=== PATIENT | female | born 1990 | race Asian ===

== ENCOUNTER 2017-03-07 23:52 | Inpatient (IN) | payer BC ==
[2017-03-08] MEDS ORDERED: Nalbuphine 10 MG/1 ML Vial IVPUSH ONE (01:48)
[2017-03-08] MEDS ORDERED: Sodium Chloride 0.9% 10 ML Syringe FLUSH PRN ×2 (01:48→17:27)
[2017-03-08] MEDS ORDERED: Acetaminophen 325 MG Tab PO PRN ×2 (01:48→17:27)
[2017-03-08] MEDS ORDERED: Ondansetron 4 MG/2 ML SDV IV PRN (01:48)
[2017-03-08] MEDS ORDERED: Butorphanol 2 MG/ML SDV IM ONE (01:48)
[2017-03-08] MEDS ORDERED: Promethazine 25 MG/ML SDV IM PRN (01:48)
[2017-03-08] MEDS ORDERED: Oxytocin/Normal Saline 30 UNIT/500 ML BAG IV SCH ×2 (02:00→17:45)
[2017-03-08] MEDS: Lactated Ringers 1,000 ML IV SCH ×5 (02:26→13:05)
--- NOTE | 2017-03-08 04:45 | HP ---
CHIEF COMPLAINT: "My water broke." HISTORY OF PRESENT ILLNESS: Ms. Lane is a 26-year-old, 1, para 0, Filipino female, who reports to Labor and Delivery at [facility] in [place] [facility] Department with complaints of spontaneous rupture of membranes just before midnight on 03/07/2017. Last menstrual period 05/26/2016, EDC 03/02/2017, EGA 40-6/7 weeks' gestation, which is consistent with last menstrual period and second trimester ultrasound. She denies any nausea, vomiting, or diarrhea. No fever or chills. No hematochezia, hematemesis, or hematuria. No dysuria, frequency, or urgency with urination. No leg pain, leg edema, back pain, or regular contractions. She does have leakage of clear fluid, but denies any vaginal bleeding. Her has gone well except for first trimester hyperemesis and some early bleeding, which stopped by the time she got under second trimester. No other issues throughout the . PAST MEDICAL HISTORY: No history of asthma, anemia, cancer, diabetes, seizure disorder, hypertension, heart disease, thyroid disease, thromboembolic disease, breast lesions, or kidney disease. FAMILY HISTORY: Positive for diabetes in her [id number], but no hypertension, heart disease, cancer, diabetes, seizure disorder, lung problems, or kidney problems in her family. SOCIAL HISTORY: She denies any tobacco use, alcohol use, or illicit drug use. She lives in [place] with her significant other, Freeman. She is . 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 PAST SURGICAL HISTORY: None. MEDICATIONS: vitamins. ALLERGIES: No known drug allergies. REVIEW OF SYSTEMS: All pertinent positive and negative review of systems per HPI. All other systems reviewed are negative. A 10-point review of systems is discussed with the patient. She has no issues. OBJECTIVE: General: Well-developed, well-nourished female, in no acute distress. Vital Signs: Stable. Afebrile. Blood pressure 130/88, respirations 18, and pulse 80. HEENT: Unremarkable. PERRLA. Neck: Supple without adenopathy. No thyromegaly. Lungs: Clear to auscultation. No wheezing, rhonchi, or rales noted. Cardiovascular: Regular rate and rhythm without murmurs. Abdomen: Gravid. Nontender. heart tones in the 130s to 140s, category 1 strip, reactive strip with good accelerations. Contractions are irregular. Cervix is 1 cm, dilated. Clear fluid. Positive Nitrazine. Extremities: No edema, erythema, or tenderness noted. DTRs 2+/4 in all areas. No clonus. LABORATORY DATA: WBC 8.3, hemoglobin 13.1, hematocrit 39.8, and platelet count 94,000. Blood type is A positive, antibody screen negative. RPR nonreactive. Hepatitis B surface antigen negative. HIV negative. Rubella immune. Group B strep negative. ASSESSMENT: 1. A 40-6/7 weeks' intrauterine . 2. Spontaneous rupture of membranes/premature rupture of membranes. 3. Thrombocytopenia of . PLAN: 1. Expect vaginal delivery. 2. Pitocin augmentation. 3. Discussed pain control with the patient and her , and at this point, she would like to go natural, but she does know her options of IV medications including Nubain and Stadol along with intrathecal if needed and wanted. 4. All questions answered. [facility] /[id number] MTDD
[2017-03-08] MEDS ORDERED: Nalbuphine 10 MG/1 ML Vial ONE (05:30)
[2017-03-08] MEDS ORDERED: fentaNYL 100 MCG/2 ML SDV ONE ×2 (07:53→12:47)
--- NOTE | 2017-03-08 08:51 | PCM.PRNOTE ---
- Free Text/Narrative Note: Requested to provide analgesia to full term patient in severe pain. Upon entering the room, pt is lying on left side complaining of severe abdominal pain and discomfort. Procedure was discussed with pt including adverse outcomes and expectations. Pt consented to analgesia, SAB/IT. Pt placed into a sitting position. Landmarks for SAB/IT were identified and marked. Back was prepped with betadine x3. A sterile, transparent, fenestrated drape was applied. Excess betadine was removed. Using 1 mL of a 2% lidocaine solution, a skin wheel was placed at the L3/L4 interspace. A 24 ga (4 inch) pencan spinal needle was inserted until positive for CSF. Negative for heme or paresthesias. Injected fentanly 20 mcg, sufenta 10 mcg, and 9 mg of a 0.75% bupivicaine solution with an epi wash. Pt was placed left lateral position for approximately 10 minutes. There were zero complications or adverse outcomes. Will continue to monitor.
--- NOTE | 2017-03-08 10:55 | PCM.PNLD ---
Labor Progress Note - VS & Meds Vital Signs: Last Vital Signs Temp 98.4 F 03/08/17 10:00 Pulse 80 03/08/17 09:15 Resp 18 03/08/17 09:15 BP 81/45 L 03/08/17 09:15 Pulse Ox 100 03/08/17 09:00 Active Medications: Current Medications Acetaminophen (Tylenol) 650 mg PO Q6H PRN PRN Reason: mild pain and fever Lactated Ringer's (Ringers, Lactated) 1,000 mls @ 125 mls/hr IV ASDIRECTED TATIANNA Last Admin: 03/08/17 08:54 Dose: 125 mls/hr Oxytocin/Sodium Chloride (Pitocin In Ns 30 Unit/500 Ml) 30 unit in 500 mls @ 2 mls/hr IV TITRATE TATIANNA; 2 MUNITS/MIN PRN Reason: Protocol Last Titration: 03/08/17 09:52 Dose: 4 munits/min, 4 mls/hr Ondansetron HCl (Zofran) 4 mg IV Q4H PRN PRN Reason: Nausea/Vomiting Last Admin: 03/08/17 08:53 Dose: 4 mg Promethazine HCl (Phenergan) 25 mg IM Q4H PRN PRN Reason: Nausea/Vomiting Sodium Chloride (Saline Flush) 10 ml FLUSH ASDIRECTED PRN PRN Reason: Keep Vein Open Discontinued Medications Butorphanol Tartrate (Stadol) 2 mg IM ONETIME ONE Stop: 03/08/17 01:49 Fentanyl (Sublimaze) Confirm Administered Dose 100 mcg .ROUTE .STK-MED ONE Stop: 03/08/17 07:54 Nalbuphine HCl (Nubain) 10 mg IVPUSH ONETIME ONE Stop: 03/08/17 01:49 Last Admin: 03/08/17 05:33 Dose: 10 mg Nalbuphine HCl (Nubain) Confirm Administered Dose 10 mg .ROUTE .STK-MED ONE Stop: 03/08/17 05:31 Last Admin: 03/08/17 06:37 Dose: Not Given Sufentanil Citrate (Sufenta) Confirm Administered Dose 50 mcg .ROUTE .STK-MED ONE Stop: 03/08/17 07:55 - Uterine Contractions Uterine Monitoring Mode: IUPC Contraction Frequency (min): 2-3 Contraction Duration (sec): 60-100 Contraction Intensity: Strong Uterine Resting Tone: Soft - Monitoring Monitor Mode: Spiral Electrode Heart Rate (FHR) Baseline: 140 Heart Rate (FHR) Variability: Moderate (6-25 bmp) Accelerations: Present, 15x15 Decelerations: None Strip Review: Category I - Vaginal Exam Dilation (cm): 6 Effacement (Percent): 100 Station: -2 Cervical Position: Midposition Sterile Vaginal Exam Performed By: Nghia oBlton - Labor Progress (Free Text) Labor Progress: Patient is very comfortable after Intrathecal. No nausea, vomiting or diarrhea. No fever or chills. Contractions every 2-3 minutes apart. Cervix 6 cm/100%/-2 IUPC and FSE placed.
--- NOTE | 2017-03-08 13:19 | PCM.PRNOTE ---
- Free Text/Narrative Note: Requested to provide analgesia to full term patient in severe pain for a second intrathecal narcotic/SAB - saddle block. Upon entering the room, pt is lying on left side complaining of moderate abdominal pain and discomfort. Procedure was discussed with pt including adverse outcomes and expectations again. Pt consented to analgesia, SAB/IT. Pt placed into a sitting position. Landmarks for SAB/IT were identified and marked. Back was prepped with betadine x3. A sterile, transparent, fenestrated drape was applied. Excess betadine was removed. Using 1 mL of a 2% lidocaine solution, a skin wheel was placed at the L3/L4 interspace. A 24 ga (4 inch) pencan spinal needle was inserted until positive for CSF on a single attempt. Positive for minimal heme but denied paresthesias. Injected fentanly 20 mcg, sufenta 10 mcg, and 10 mg of a 0.75% bupivicaine solution with an epi wash. Pt was placed left lateral position for approximately 10 minutes. There were zero complications or adverse outcomes. Will continue to monitor.
--- NOTE | 2017-03-08 15:49 | PCM.PNLD ---
Labor Progress Note - VS & Meds Vital Signs: Last Vital Signs Temp 98.6 F 03/08/17 13:00 Pulse 79 03/08/17 15:00 Resp 18 03/08/17 15:00 BP 102/60 03/08/17 15:00 Pulse Ox 100 03/08/17 15:00 Active Medications: Current Medications Acetaminophen (Tylenol) 650 mg PO Q6H PRN PRN Reason: mild pain and fever Lactated Ringer's (Ringers, Lactated) 1,000 mls @ 125 mls/hr IV ASDIRECTED TATIANNA Last Admin: 03/08/17 13:05 Dose: 125 mls/hr Oxytocin/Sodium Chloride (Pitocin In Ns 30 Unit/500 Ml) 30 unit in 500 mls @ 2 mls/hr IV TITRATE TATIANNA; 2 MUNITS/MIN PRN Reason: Protocol Last Titration: 03/08/17 12:05 Dose: 12 munits/min, 12 mls/hr Ondansetron HCl (Zofran) 4 mg IV Q4H PRN PRN Reason: Nausea/Vomiting Last Admin: 03/08/17 08:53 Dose: 4 mg Promethazine HCl (Phenergan) 25 mg IM Q4H PRN PRN Reason: Nausea/Vomiting Sodium Chloride (Saline Flush) 10 ml FLUSH ASDIRECTED PRN PRN Reason: Keep Vein Open Discontinued Medications Butorphanol Tartrate (Stadol) 2 mg IM ONETIME ONE Stop: 03/08/17 01:49 Fentanyl (Sublimaze) Confirm Administered Dose 100 mcg .ROUTE .STK-MED ONE Stop: 03/08/17 07:54 Last Admin: 03/08/17 11:54 Dose: Not Given Fentanyl (Sublimaze) Confirm Administered Dose 100 mcg .ROUTE .STK-MED ONE Stop: 03/08/17 12:48 Last Admin: 03/08/17 13:16 Dose: Not Given Nalbuphine HCl (Nubain) 10 mg IVPUSH ONETIME ONE Stop: 03/08/17 01:49 Last Admin: 03/08/17 05:33 Dose: 10 mg Nalbuphine HCl (Nubain) Confirm Administered Dose 10 mg .ROUTE .STK-MED ONE Stop: 03/08/17 05:31 Last Admin: 03/08/17 06:37 Dose: Not Given Sufentanil Citrate (Sufenta) Confirm Administered Dose 50 mcg .ROUTE .STK-MED ONE Stop: 03/08/17 07:55 Last Admin: 03/08/17 11:54 Dose: Not Given Sufentanil Citrate (Sufenta) Confirm Administered Dose 50 mcg .ROUTE .STK-MED ONE Stop: 03/08/17 12:48 Last Admin: 03/08/17 13:16 Dose: Not Given - Uterine Contractions Uterine Monitoring Mode: IUPC Contraction Frequency (min): 2-3 Contraction Duration (sec): 60-100 Contraction Intensity: Strong Uterine Resting Tone: Soft - Monitoring Monitor Mode: Spiral Electrode Heart Rate (FHR) Baseline: 145 Heart Rate (FHR) Variability: Moderate (6-25 bmp) Accelerations: Present, 15x15 Decelerations: Variable, Intermittent (<50% x 20 min) Strip Review: Category I - Vaginal Exam Dilation (cm): Rim Effacement (Percent): 100 Station: 0 Cervical Position: Midposition Sterile Vaginal Exam Performed By: Nghia Bolton Vaginal Exam Comment: Just a small amount on the left side. + bloody show.
[2017-03-08] MEDS ORDERED: Carboprost Tromethamine 250 MCG/1 ML Amp IM PRN (17:27)
[2017-03-08] MEDS ORDERED: Simethicone 80 MG Tab.Chew PO PRN (17:27)
[2017-03-08] MEDS ORDERED: Misoprostol 400 MCG (4 X 100 MCG TAB) RECTAL PRN (17:27)
[2017-03-08] MEDS ORDERED: Zolpidem 5 MG Tab PO PRN (17:27)
--- NOTE | 2017-03-08 17:41 | PCM.DEL ---
L & D Note - General Info Date of Service: 03/08/17 ( at 1638 hours) Mother's Due Date: 03/02/17 (40 6/7 weeks gestation) - Delivery Note Labor: Augmented by Oxytocin Delivery Outcome: Livebirth Delivery Method: Spontaneous Vaginal Delivery-Single Infant Delivery Mode: Vacuum Extraction Presentation: Left Occiput Anterior (JAILYN) Nuchal Cord: None Prep: Povidone-Iodine (Betadine Anesthesia Type: Intrathecal Amniotic Fluid Description: Clear Episiotomy Type: None Laceration: 2nd Degree, Labial Suture type: Vicryl Suture size: 3-0 Placenta: Intact, Spontaneous Cord: 3 Vessels Estimated Blood Loss: 450 Resuscitation Needed: Yes [place]: Suctioned, Bulb Syringe, Stimulated, Warmed, Vevay Used, Warmer Used Provider: Nghia Bolton Score 1 min: 3 Score 5 min: 8 Second Stage Interventions: Reports: Second Nurse Assessed Progress of Descent, Second Nurse Reviewed Contraction Pattern, Second Nurse Reviewed Heart Tones, Encouragement Given, Pushing Ineffectively, Pushing, McRobert's Position , Pushing, Stirrups/Leg Supports Delivery Comments (Free Text/Narrative):: 26 y.o 1 Para 0 female who reported to labor and delivery with spontaneous rupture of membranes. Pitocin augmentation started. She did get a Intrathecal X 2 for pain control. Once she got to complete she pushed until she got to a + 2 station then did not bring the head down anymore so a Kiwi vacuum was placed with 4 pushes and 3 contractions and after 9 minutes the head was delivered JAILYN then the rest of the was delivered over a 2nd degree midline perineal laceration. At 1639 a Viable male infant 7 lbs 5 oz; 20 1/4 inches long; with 's 3 at 1 minute and 8 at 5 minutes. The second degree laceration and labial lacerations were repaired with 3-0 and 2-0 chromic suture without difficulty. No complications. Mother and infant in good condition. Vacuum Extractor Progress Note - Alternative Labor Strategies Considered Strategies Considered:: Reports: Contraction Intensity Adequate, Position Changes Used to Facilitate Rotation & Descent, Empty Bladder, Rest Indications Considered:: Reports: Yes Indications:: Reports: Suspicion of Immediate or Potential Compromise Time Out:: Reports: Yes - Patient Prepared Patient Prepared:: Reports: Yes Informed Consent:: Reports: Yes Risks: Reports: Yes Risks Include:: Reports: Laceration, Shoulder Dystocia, Maternal Injury Anesthesia/Analgesia Adequate:: Reports: Yes - Probability of Success High Probability of Success:: Reports: Yes Weight Estimated:: Reports: AGA Patient Diabetic:: Reports: No Pelvis Adequate:: Reports: Yes Asynclitic:: Reports: Yes - Application Time Maximum Application Time & Number of Pop-Offs Predetermined:: Reports: Yes Maximum Pressure Maintained in [place] (cm Hg):: 25 Total Application Time (min): *max=20min: 9 Number of Times Cup Disengaged:: 0 Type of Vacuum Used:: Reports: Cup: Rigid Vacuum Extraction: Successful - Exit Strategy Exit strategy available:: Reports: Yes and resuscitation teams readily available:: Reports: Yes - Patient Data Vitals - Most Recent: Last Vital Signs Temp 98.6 F 03/08/17 13:00 Pulse 79 03/08/17 15:00 Resp 18 03/08/17 15:00 BP 102/60 03/08/17 15:00 Pulse Ox 100 03/08/17 15:00 Weight - Most Recent: 136 lb I&O - Last 24 Hours: Intake & Output 03/08/17 03/08/17 03/08/17 06:59 14:59 22:59 Intake Total 1000 Output Total 500 Balance 1000 -500 Lab Results Last 24 Hours: Laboratory Results - last 24 hr 03/08/17 Range/Units 00:35 WBC 8.3 (5.0-10.0) 10^3/uL RBC 3.81 L (4.2-5.4) 10^6/uL Hgb 13.1 (12.0-16.0) g/dL Hct 39.8 (37.0-47.0) % MCV 104.5 H (80-100) fL MCH 34.4 H (27.0-34.0) pg MCHC 32.9 L (33.0-35.0) g/dL Plt Count 94 L (150-450) 10^3/uL Med Orders - Current: Current Medications Acetaminophen (Tylenol) 650 mg PO Q6H PRN PRN Reason: mild pain and fever Acetaminophen (Tylenol) 650 mg PO Q6H PRN PRN Reason: mild pain or fever Benzocaine/Menthol (Dermoplast Pain Relief [place]) 0 gm TOP Q4H PRN PRN Reason: Perineal comfort measures Carboprost Tromethamine (Hemabate Ds) 250 mcg IM ASDIRECTED PRN PRN Reason: Excessive vaginal bleeding Docusate Sodium (Colace) 100 mg PO BID PRN PRN Reason: Constipation Lactated Ringer's (Ringers, Lactated) 1,000 mls @ 125 mls/hr IV ASDIRECTED TATIANNA Last Admin: 03/08/17 13:05 Dose: 125 mls/hr Oxytocin/Sodium Chloride (Pitocin In Ns 30 Unit/500 Ml) 30 unit in 500 mls @ 2 mls/hr IV TITRATE TATIANNA; 2 MUNITS/MIN PRN Reason: Protocol Last Titration: 03/08/17 12:05 Dose: 12 munits/min, 12 mls/hr Oxytocin/Sodium Chloride (Pitocin In Ns 30 Unit/500 Ml) 500 mls @ 999 mls/hr IV TITRATE TATIANNA; 999 MUNITS/MIN PRN Reason: Protocol Ibuprofen (Motrin) 800 mg PO Q8H PRN PRN Reason: Mild Pain or Fever Misoprostol (Cytotec) 800 mcg RECTAL ONETIME PRN PRN Reason: Hemorrhage Ondansetron HCl (Zofran) 4 mg IV Q4H PRN PRN Reason: Nausea/Vomiting Last Admin: 03/08/17 08:53 Dose: 4 mg Prenat Multivit/[place]/Iron/Folic Ac ( Plus Iron) 1 each PO DAILY TATIANNA Promethazine HCl (Phenergan) 25 mg IM Q4H PRN PRN Reason: Nausea/Vomiting Simethicone (Simethicone) 80 mg PO Q4H PRN PRN Reason: Gas Sodium Chloride (Saline Flush) 10 ml FLUSH ASDIRECTED PRN PRN Reason: Keep Vein Open Sodium Chloride (Saline Flush) 10 ml FLUSH ASDIRECTED PRN PRN Reason: Keep Vein Open Zolpidem Tartrate (Ambien) 5 mg PO BEDTIME PRN PRN Reason: Insomnia Discontinued Medications Butorphanol Tartrate (Stadol) 2 mg IM ONETIME ONE Stop: 03/08/17 01:49 Fentanyl (Sublimaze) Confirm Administered Dose 100 mcg .ROUTE .STK-MED ONE Stop: 03/08/17 07:54 Last Admin: 03/08/17 11:54 Dose: Not Given Fentanyl (Sublimaze) Confirm Administered Dose 100 mcg .ROUTE .STK-MED ONE Stop: 03/08/17 12:48 Last Admin: 03/08/17 13:16 Dose: Not Given Nalbuphine HCl (Nubain) 10 mg IVPUSH ONETIME ONE Stop: 03/08/17 01:49 Last Admin: 03/08/17 05:33 Dose: 10 mg Nalbuphine HCl (Nubain) Confirm Administered Dose 10 mg .ROUTE .STK-MED ONE Stop: 03/08/17 05:31 Last Admin: 03/08/17 06:37 Dose: Not Given Sufentanil Citrate (Sufenta) Confirm Administered Dose 50 mcg .ROUTE .STK-MED ONE Stop: 03/08/17 07:55 Last Admin: 03/08/17 11:54 Dose: Not Given Sufentanil Citrate (Sufenta) Confirm Administered Dose 50 mcg .ROUTE .STK-MED ONE Stop: 03/08/17 12:48 Last Admin: 03/08/17 13:16 Dose: Not Given - Problem List Review Problem List Initiated/Reviewed/Updated: Yes - My Orders Last 24 Hours: My Active Orders 03/08/17 01:48 Patient Status [ADT] Routine Notify Provider Vital Signs OB [RC] ASDIRECTED Notify Provider [RC] PRN Up ad Yari [RC] ASDIRECTED Vital Signs [RC] PER UNIT ROUTINE Acetaminophen [Tylenol] 650 mg PO Q6H PRN Ondansetron [Zofran] 4 mg IV Q4H PRN Promethazine [Phenergan] 25 mg IM Q4H PRN Sodium Chloride 0.9% [Saline Flush] 10 ml FLUSH ASDIRECTED PRN Peripheral IV Insertion Adult [OM.PC] Routine Resuscitation Status Routine 03/08/17 02:00 Lactated Ringers [Ringers, Lactated] 1,000 ml IV ASDIRECTED Oxytocin/Normal Saline [Pitocin in NS 30 UNIT/500 ML] 30 unit in 500 ml IV TITRATE 03/08/17 02:01 Peripheral IV Care [RC] . DIRECTED 03/08/17 17:27 May Shower [RC] ASDIRECTED Acetaminophen [Tylenol] 650 mg PO Q6H PRN Benzocaine/Menthol [Dermoplast Pain Relief [place]] See Dose Instructions TOP Q4H PRN Carboprost Tromethamine [Hemabate DS] 250 mcg IM ASDIRECTED PRN Docusate Sodium [Colace] 100 mg PO BID PRN Ibuprofen [Motrin] 800 mg PO Q8H PRN Misoprostol [Cytotec] 800 mcg RECTAL ONETIME PRN Simethicone 80 mg PO Q4H PRN Sodium Chloride 0.9% [Saline Flush] 10 ml FLUSH ASDIRECTED PRN Zolpidem [Ambien] 5 mg PO BEDTIME PRN 03/08/17 17:28 Up ad Yari [RC] ASDIRECTED CBC W/O DIFF,HEMOGRAM [HEME] Routine Assess Lochia [WOMSER] Per Unit Routine Assess Uterine Involution [WOMSER] Per Unit Routine Breast Pump [WOMSER] Per Unit Routine Ice Therapy [OM.PC] Per Unit Routine Perineal Care [OM.PC] Per Unit Routine Saline Lock Insert [OM.PC] Urgent Sitz Bath [OM.PC] Per Unit Routine 03/08/17 17:45 Oxytocin/Normal Saline [Pitocin in NS 30 UNIT/500 ML] 500 ml IV TITRATE 03/08/17 Breakfast Clear Liquid Diet [DIET] 03/08/17 Dinner Regular Diet [DIET] 03/09/17 05:11 CBC W/O DIFF,HEMOGRAM [HEME] AM 03/09/17 09:00 Vit with Ca/FA/Iron [ Plus Iron] 1 each PO DAILY
[2017-03-08] MEDS ORDERED: Ketorolac 30 MG/ML SDV IVPUSH PRN (18:42)
[2017-03-08] MEDS: Benzocaine/Menthol 20%-0.5% Spray 56 GM Canister TOP PRN (22:01)
[2017-03-08] MEDS: Docusate Sodium 100 MG Cap PO PRN (22:02)
--- NOTE | 2017-03-09 03:26 | PCM.PNPP ---
- General Info Date of Service: 03/09/17 (PPD # 1 S/P ) Functional Status: Reports: Pain Controlled, Tolerating Diet, Ambulating - Review of Systems General: Reports: No Symptoms HEENT: Reports: No Symptoms Pulmonary: Reports: No Symptoms Cardiovascular: Reports: No Symptoms Gastrointestinal: Reports: No Symptoms Genitourinary: Reports: No Symptoms Musculoskeletal: Reports: No Symptoms Skin: Reports: No Symptoms Neurological: Reports: No Symptoms Psychiatric: Reports: No Symptoms - General Info Date of Service: 03/09/17 (PPD # 1 S/P ) - Patient Data Vital Signs - Most Recent: Last Vital Signs Temp 98.4 F 03/08/17 20:00 Pulse 98 03/08/17 20:00 Resp 16 03/08/17 20:00 BP 109/56 L 03/08/17 20:00 Pulse Ox 100 03/08/17 20:00 Weight - Most Recent: 136 lb I&O - Last 24 Hours: Intake & Output 03/08/17 03/08/17 03/09/17 14:59 22:59 06:59 Output Total 520 Balance -520 Med Orders - Current: Current Medications Acetaminophen (Tylenol) 650 mg PO Q6H PRN PRN Reason: mild pain and fever Acetaminophen (Tylenol) 650 mg PO Q6H PRN PRN Reason: mild pain or fever Benzocaine/Menthol (Dermoplast Pain Relief [place]) 0 gm TOP Q4H PRN PRN Reason: Perineal comfort measures Last Admin: 03/08/17 22:01 Dose: 1 applic Carboprost Tromethamine (Hemabate Ds) 250 mcg IM ASDIRECTED PRN PRN Reason: Excessive vaginal bleeding Docusate Sodium (Colace) 100 mg PO BID PRN PRN Reason: Constipation Last Admin: 03/08/17 22:02 Dose: 100 mg Lactated Ringer's (Ringers, Lactated) 1,000 mls @ 125 mls/hr IV ASDIRECTED TATIANNA Last Admin: 03/08/17 13:05 Dose: 125 mls/hr Oxytocin/Sodium Chloride (Pitocin In Ns 30 Unit/500 Ml) 30 unit in 500 mls @ 2 mls/hr IV TITRATE TATIANNA; 2 MUNITS/MIN PRN Reason: Protocol Last Titration: 03/08/17 18:10 Dose: Infused Oxytocin/Sodium Chloride (Pitocin In Ns 30 Unit/500 Ml) 30 unit in 500 mls @ 999 mls/hr IV TITRATE TATIANNA; 999 MUNITS/MIN PRN Reason: Protocol Ibuprofen (Motrin) 800 mg PO Q8H PRN PRN Reason: Mild Pain or Fever Ketorolac Tromethamine (Toradol) 30 mg IVPUSH ONETIME PRN PRN Reason: Pain Last Admin: 03/08/17 19:30 Dose: 30 mg Misoprostol (Cytotec) 800 mcg RECTAL ONETIME PRN PRN Reason: Hemorrhage Ondansetron HCl (Zofran) 4 mg IV Q4H PRN PRN Reason: Nausea/Vomiting Last Admin: 03/08/17 08:53 Dose: 4 mg Prenat Multivit/[place]/Iron/Folic Ac ( Plus Iron) 1 each PO DAILY TATIANNA Promethazine HCl (Phenergan) 25 mg IM Q4H PRN PRN Reason: Nausea/Vomiting Simethicone (Simethicone) 80 mg PO Q4H PRN PRN Reason: Gas Sodium Chloride (Saline Flush) 10 ml FLUSH ASDIRECTED PRN PRN Reason: Keep Vein Open Sodium Chloride (Saline Flush) 10 ml FLUSH ASDIRECTED PRN PRN Reason: Keep Vein Open Zolpidem Tartrate (Ambien) 5 mg PO BEDTIME PRN PRN Reason: Insomnia Discontinued Medications Butorphanol Tartrate (Stadol) 2 mg IM ONETIME ONE Stop: 03/08/17 01:49 Last Admin: 03/08/17 19:23 Dose: Not Given Fentanyl (Sublimaze) Confirm Administered Dose 100 mcg .ROUTE .STK-MED ONE Stop: 03/08/17 07:54 Last Admin: 03/08/17 11:54 Dose: Not Given Fentanyl (Sublimaze) Confirm Administered Dose 100 mcg .ROUTE .STK-MED ONE Stop: 03/08/17 12:48 Last Admin: 03/08/17 13:16 Dose: Not Given Nalbuphine HCl (Nubain) 10 mg IVPUSH ONETIME ONE Stop: 03/08/17 01:49 Last Admin: 03/08/17 05:33 Dose: 10 mg Nalbuphine HCl (Nubain) Confirm Administered Dose 10 mg .ROUTE .STK-MED ONE Stop: 03/08/17 05:31 Last Admin: 03/08/17 06:37 Dose: Not Given Sufentanil Citrate (Sufenta) Confirm Administered Dose 50 mcg .ROUTE .STK-MED ONE Stop: 03/08/17 07:55 Last Admin: 03/08/17 11:54 Dose: Not Given Sufentanil Citrate (Sufenta) Confirm Administered Dose 50 mcg .ROUTE .STK-MED ONE Stop: 03/08/17 12:48 Last Admin: 03/08/17 13:16 Dose: Not Given - Infant Interaction Disposition, : to Nursery Interaction: Holding Infant Infant Feeding: Bottle Fed Support Person: - Recovery Exam Fundal Tone: Firm Fundal Level: 1 Fingerbreadths Below Umbilicus Fundal Placement: Midline Lochia Amount: Small Lochia Color: Rubra/Red Perineum Description: Edematous Episiotomy/Laceration: Approximated Bladder Status: Nonpalpable, Voiding Urinary Elimination: Voided - Exam General: Alert, Oriented, Cooperative, No Acute Distress HEENT: Pupils Equal, Pupils Reactive, EOMI, Mucous Membr. Moist/[place] Neck: Supple Lungs: Clear to Auscultation, Normal Respiratory Effort Cardiovascular: Regular Rate, Regular Rhythm GI/Abdominal Exam: Normal Bowel Sounds, Non-Tender, No Organomegaly, No Distention Extremities: Normal Inspection, Normal Range of Motion, Non-Tender, No Pedal Edema, Normal Capillary Refill Skin: Warm, Dry, Intact Wound/Incisions: Healing Well Neurological: No New Focal Deficit Psy/Mental Status: Alert, Normal Affect, Normal Mood - Problem List Review Problem List Initiated/Reviewed/Updated: Yes - My Orders Last 24 Hours: My Active Orders 03/08/17 17:27 May Shower [RC] ASDIRECTED Acetaminophen [Tylenol] 650 mg PO Q6H PRN Benzocaine/Menthol [Dermoplast Pain Relief [place]] See Dose Instructions TOP Q4H PRN Carboprost Tromethamine [Hemabate DS] 250 mcg IM ASDIRECTED PRN Docusate Sodium [Colace] 100 mg PO BID PRN Ibuprofen [Motrin] 800 mg PO Q8H PRN Misoprostol [Cytotec] 800 mcg RECTAL ONETIME PRN Simethicone 80 mg PO Q4H PRN Sodium Chloride 0.9% [Saline Flush] 10 ml FLUSH ASDIRECTED PRN Zolpidem [Ambien] 5 mg PO BEDTIME PRN 03/08/17 17:28 Up ad Yari [RC] ASDIRECTED Assess Lochia [WOMSER] Per Unit Routine Assess Uterine Involution [WOMSER] Per Unit Routine Breast Pump [WOMSER] Per Unit Routine Ice Therapy [OM.PC] Per Unit Routine Perineal Care [OM.PC] Per Unit Routine Saline Lock Insert [OM.PC] Urgent Sitz Bath [OM.PC] Per Unit Routine 03/08/17 17:45 Oxytocin/Normal Saline [Pitocin in NS 30 UNIT/500 ML] 30 unit in 500 ml IV TITRATE 03/08/17 18:42 Ketorolac [Toradol] 30 mg IVPUSH ONETIME PRN 03/08/17 Breakfast Clear Liquid Diet [DIET] 03/08/17 Dinner Regular Diet [DIET] 03/09/17 05:11 CBC W/O DIFF,HEMOGRAM [HEME] AM 03/09/17 09:00 Vit with Ca/FA/Iron [ Plus Iron] 1 each PO DAILY - Assessment Assessment:: PPD # 1 S/P Doing well Perineum sore and edematous - Plan Plan:: Continue present care Planning discharge to home tomorrow. Continue ice on perineum
[2017-03-09] MEDS: Docusate Sodium 100 MG Cap PO PRN ×2 (08:57→19:43)
[2017-03-09] MEDS: Ibuprofen 800 MG Tab PO PRN ×2 (08:57→19:42)
[2017-03-09] MEDS: Prenatal Multivitamin with Calcium/Folic Acid/Iron Tab PO SCH (08:57)
[2017-03-09] MEDS ORDERED: fentaNYL 100 MCG/2 ML SDV ITHECAL ONE (14:32)
[2017-03-10] MEDS: Ibuprofen 800 MG Tab PO PRN (03:50)
[2017-03-10] MEDS: Docusate Sodium 100 MG Cap PO PRN (10:17)
[2017-03-10] MEDS: Prenatal Multivitamin with Calcium/Folic Acid/Iron Tab PO SCH (10:17)
[2017-03-10 10:27] VITALS: BP 108/61
[2017-03-10] MEDS: Benzocaine/Menthol 20%-0.5% Spray 56 GM Canister TOP PRN (13:48)
--- NOTE | 2017-03-10 13:52 | DISCH ---
ADMIT DIAGNOSIS: G1, P0 term intrauterine that presented with spontaneous rupture of membranes. DISCHARGE DIAGNOSES: 1. G1, P0 term intrauterine that presented with spontaneous rupture of membranes, delivered, and second-degree vaginal repair required. 2. Status post vacuum-assisted vaginal delivery. 3. Group B Streptococcus negative status. 4. Gestational thrombocytopenia. 5. Anemia of acute blood loss. Hemoglobin dropping down to 8.6 as noted below. PRESENT ILLNESS: Please see H and P. SUMMARY OF HOSPITAL COURSE: The patient was admitted on the above date with the above diagnosis. Please see progress notes for further details. day #1, please see progress note. day #2, date of discharge, the patient was tolerating p.o., ambulating, urinating, passing flatus, requesting discharge. PHYSICAL EXAMINATION: Vital Signs: Last set of vitals updated and listed in the chart. Temperature 99.4, heart rate 112, blood pressure 110/52, respiratory rate 18. Lungs: Clear to auscultation bilaterally. Heart: S1 and S2. Regular rate and rhythm. Abdomen: Firm uterus +1 below umbilicus. Extremities: No peripheral edema. No calf pain. LABORATORY DATA: On 03/09/2017, revealed a white cell count 13, hemoglobin 8.6, platelets dropped down to 79,000. Repeat CBC will be done today prior to discharge. CONDITION ON DISCHARGE COMPARED TO CONDITION ON ADMISSION: Improved. DISCHARGE INSTRUCTIONS: 1. Diet: As tolerated. 2. Activity: No lifting more than 20 pounds. No sit-ups, straining, and pelvic rest for next 6 weeks with immediate return to fertility discussed with the patient. 3. Reasons to return or to go to the emergency room were discussed with the patient in detail including, but not limited to, temperature greater than 100.4, foul-smelling discharge, red, hot tender breasts, chest pain, shortness of breath, lightheadedness. DISCHARGE MEDICATIONS: 1. [id number] Tylenol or ibuprofen for pain. 2. Iron sulfate 325 b.i.d. x6 weeks. 3. vitamins x6 weeks. FOLLOWUP: Follow up in in 6 weeks for visit or sooner if she has any issues. The patient understands and agrees with the above treatment plan. Discussed the importance of followup and ramifications of not doing so. [facility] /[id number]
== END 2017-03-10 14:30 | disposition home or self-care (01) | DRG 560 ==
LOC: DL.OBCHECK 23:52 → DL.OB 03-08 00:45 → OBSVTOIN 03-08 16:38 → DL.OB 03-10 01:59
PROVIDERS: ADMIT Obstetrics & Gynecology; ATTEND Obstetrics & Gynecology
PROC: 10D07Z6 Extraction of Products of Conception, Vacuum, Via Natural or Artificial Opening (ICD-10-PCS; principal; 2017-03-08)
PROC: 0KQM0ZZ Repair Perineum Muscle, Open Approach (ICD-10-PCS; 2017-03-08)
PROC: 3E0R3CZ (ICD-10-PCS; 2017-03-08)
PROC: 00HU33Z Insertion of Infusion Device into Spinal Canal, Percutaneous Approach (ICD-10-PCS; 2017-03-08)
DX: O42.02 Full-term premature rupture of membranes, onset of labor within 24 hours of rupture (principal); O70.0 First degree perineal laceration during delivery; O48.0 Post-term pregnancy; O99.12 Other diseases of the blood and blood-forming organs and certain disorders involving the immune mechanism complicating childbirth; Z3A.41 41 weeks gestation of pregnancy; Z37.0 Single live birth; O66.0 Obstructed labor due to shoulder dystocia; O99.02 Anemia complicating childbirth; D64.89 Other specified anemias
CPT/HCPCS: 36415; 83986; 85027; A9270-GY; J1885; J2300; J2405; J2590; J3010; J7120